=== PATIENT | female | born 1930 | race Caucasian/White ===

== ENCOUNTER 2017-03-27 08:32 | Emergency (ER) | payer OTHER ==
[~2017-03-27] VITALS: Ht 167.6 cm; Wt 81.9 kg
[~2017-03-27 08:32] MED LIST: ALEVE220 M2 PO; ALEVE220 MG PO; ASPIRIN81 M2 PO; Aleve PO; BENICAR40 MG PO; CALCIUM PO; CALTRATE 600600 MG PO; CHILD ASPIRIN81 M1 PO; COUMADIN2.5 MG PO; DAILY VITE1 EAC1 PO; HYDROCHLOROTHIA25 MG PO; HYDROCODON-ACE1 EAC7 PO; IRON325 MG PO; NIASPAN,SLO-N1000 MG PO; PERCOCET 5/31 TABLET PO; SIMVASTATIN20 MG PO; TOPROL XL50 MG PO; VISTARIL25 MG PO
[2017-03-27 10:27] LABS: EOSINOPHIL (%) 0.2 % (0-5); HEMATOCRIT 37.2 % (36.0-46.0); IMMATURE GRANULOCYTE (%) 0.5 % (0.0-0.7); IMMATURE GRANULOCYTE COUNT 0.1 K/uL; INSTRUMENT ABS NEUTROPHIL CT 10.3 K/uL; MCHC 32.8 G/DL (30.0-36.0); MCV 91.4 FL (83-99); MEAN PLAT.VOLUME 11.8 uM^3 (9.5-12.4); MONOCYTE (%) 12.9 % (3-12); MONOCYTE COUNT 1.7 K/uL (0-0.8); NEUTROPHIL (%) 78.7 % (45-76); NEUTROPHIL COUNT 10.3 K/uL (1.8-6.4); PLATELET COUNT 242 K/uL (156-360); RBC DIS.WIDTH-CV 15.9 % (11.8-14.6); RBC DIS.WIDTH-SD 53.1 % (39-53); RED BLOOD COUNT 4.07 M/uL (3.80-5.20); WHITE BLOOD COUNT 13.1 K/uL (4.1-10.2)
[2017-03-27 10:38] LABS: CHLORIDE 99 mEq/L (99-109); POTASSIUM 4.4 mEq/L (3.7-5.4); SODIUM 133 mEq/L (136-147)
[2017-03-27 10:39] LABS: D-DIMER ELISA 2.07 mg/L FEU (< 0.57)
[2017-03-27 10:40] LABS: GLUCOSE 103 mg/dL (70-99)
[2017-03-27 10:41] LABS: ANION GAP 9 MEQ/L (2-14)
[2017-03-27 10:42] LABS: TOTAL BILIRUBIN 0.8 mg/dL (0.0-1.0)
[2017-03-27 10:44] LABS: ALKALINE PHOSPHATASE 367 IU/L (3-129); GFR ESTIMATE (CALCULATED) > 59 mL/min/
[2017-03-27 10:45] LABS: UREA NITROGEN (BUN) 11 mg/dL (9-23)
[2017-03-27 10:48] LABS: TROP-I INTERPRETATION NEGATIVE; TROPONIN-I < 0.01 ng/mL (0.0-0.30)
[2017-03-27 11:38] LABS: ADD MIUA? YES; BILIRUBIN MODERATE; BLOOD NEGATIVE; COLOR YELLOW ((YELLOW)); GLUCOSE (STRIP) NEGATIVE; KETONES 5; LEUKOCYTES SMALL; NITRITE NEGATIVE; PROTEIN (STRIP) 30
[2017-03-27 11:45] LABS: BACTERIA RARE /HPF; CALCIUM OXALATE CRYSTALS 2+ /HPF; EPITHELIAL CELLS NONE SEEN /HPF; MUCUS TRACE /LPF; RED BLOOD CELLS 0-5 /HPF (0-5); UCUL ADDED? NO; UNCLASSIFIED CASTS 0-5 /LPF
[2017-03-27 12:08] LABS: ICTOTEST NEGATIVE
[2017-03-27] MEDS ORDERED: MACROBID100 MG PO (13:40)
[2017-03-27] MEDS ORDERED: NORCO 5/3251 TABLET PO (13:40)
[2017-03-27 14:25] VITALS: BP 122/83
== END 2017-03-27 14:26 | disposition home or self-care (01) ==
LOC: EME → EDBD 08:32 → EME 08:32
PROVIDERS: Emergency Medicine
DX: R10.11 Right upper quadrant pain (principal); R16.0 Hepatomegaly, not elsewhere classified; N39.0 Urinary tract infection, site not specified; I10 Essential (primary) hypertension; E78.5 Hyperlipidemia, unspecified; Z85.820 Personal history of malignant melanoma of skin; Z97.0 Presence of artificial eye
CPT/HCPCS: 71010; 71275; 80053; 81003; 83880; 84484; 85025; 85379; 93005; 99281; 99285

== ENCOUNTER 2017-04-11 13:48 | Inpatient (IN) | payer OTHER ==
[~2017-04-11] VITALS: Ht 167.6 cm; Wt 87.0 kg
[~2017-04-11 13:48] MED LIST changes: -CALCIUM 600 +1 EAC3 PO; -ONDANSETRON HCL8 MG PO; -OXYCODONE HCL5 MG PO
[2017-04-11 15:51] LABS: HEMATOCRIT 35.7 % (36.0-46.0); MCHC 33.1 G/DL (30.0-36.0); MCV 93.7 FL (83-99); MEAN PLAT.VOLUME 10.8 uM^3 (9.5-12.4); PLATELET COUNT 234 K/uL (156-360); RBC DIS.WIDTH-SD 61.4 % (39-53); RED BLOOD COUNT 3.81 M/uL (3.80-5.20); WHITE BLOOD COUNT 16.9 K/uL (4.1-10.2)
[2017-04-11 16:01] LABS: CHLORIDE 103 mEq/L (99-109); POTASSIUM 4.9 mEq/L (3.7-5.4); SODIUM 135 mEq/L (136-147)
[2017-04-11 16:03] LABS: GLUCOSE 111 mg/dL (70-99)
[2017-04-11 16:04] LABS: ANION GAP 8 MEQ/L (2-14)
[2017-04-11 16:07] LABS: GFR ESTIMATE (CALCULATED) 50 mL/min/
[2017-04-11 16:08] LABS: UREA NITROGEN (BUN) 28 mg/dL (9-23)
[2017-04-11] MEDS ORDERED: CALCIUM 600 +1 EAC3 PO (17:12)
[2017-04-11] MEDS ORDERED: ONDANSETRON HCL8 MG PO (17:14)
[2017-04-11] MEDS ORDERED: OXYCODONE HCL5 MG PO (17:14)
[2017-04-11 17:44] LABS: TYPE OF FLUID PLEURAL
[2017-04-11 18:09] LABS: BODY FLUID RBC'S 10000 /MM^3 (0-100); BODY FLUID WBC'S 267 /MM^3 (0-500)
[2017-04-11 18:20] LABS: BODY FLUID EOSINOPHILS 0 % (0-25); MONONUCLEAR WBC'S 92 %; POLYNUCLEAR WBC'S 8 % (0-25)
[2017-04-11 18:45] VITALS: BP 92/51
[2017-04-11 18:52] LABS: BODY FLUID LDH 447 IU/L; BODY FLUID PROTEIN < 3.0 G/DL
[2017-04-11 21:14] VITALS: BP 87/50
[2017-04-11 21:45] LABS: TROP-I INTERPRETATION NEGATIVE; TROPONIN-I 0.02 ng/mL (0.0-0.30)
[2017-04-11 22:38] VITALS: BP 89/51
[2017-04-12 02:50] VITALS: BP 112/60
[2017-04-12 05:34] LABS: HEMATOCRIT 31.9 % (36.0-46.0); MCHC 32.3 G/DL (30.0-36.0); MCV 96.1 FL (83-99); MEAN PLAT.VOLUME 11.2 uM^3 (9.5-12.4); PLATELET COUNT 204 K/uL (156-360); RBC DIS.WIDTH-CV 18.1 % (11.8-14.6); RBC DIS.WIDTH-SD 63.3 % (39-53); RED BLOOD COUNT 3.32 M/uL (3.80-5.20); WHITE BLOOD COUNT 14.5 K/uL (4.1-10.2)
[2017-04-12 05:58] LABS: ANION GAP 6 MEQ/L (2-14); CHLORIDE 101 MEQ/L (99-109); GFR ESTIMATE (CALCULATED) 30 mL/min/; GLUCOSE 87 mg/dL (70-99); POTASSIUM 5.3 MEQ/L (3.7-5.4); SAMPLE HEMOLYSIS CHECK 0; SAMPLE ICTERIC CHECK 0; SAMPLE LIPEMIA CHECK 0; SODIUM 135 MEQ/L (136-147); UREA NITROGEN (BUN) 31 mg/dL (9-23)
[2017-04-12 08:15] VITALS: BP 108/56
[2017-04-12 12:32] VITALS: BP 97/50
[2017-04-12 16:32] VITALS: BP 104/51
[2017-04-12 19:23] VITALS: BP 98/52
[2017-04-12 22:12] VITALS: BP 90/44
[2017-04-13 03:13] VITALS: BP 97/52
[2017-04-13 08:06] VITALS: BP 104/52
[2017-04-13 10:59] LABS: ANION GAP 9 MEQ/L (2-14); CHLORIDE 101 MEQ/L (99-109); GFR ESTIMATE (CALCULATED) 19 mL/min/; GLUCOSE 127 mg/dL (70-99); POTASSIUM 4.8 MEQ/L (3.7-5.4); SAMPLE HEMOLYSIS CHECK 0; SAMPLE ICTERIC CHECK 0; SAMPLE LIPEMIA CHECK 0; SODIUM 135 MEQ/L (136-147); UREA NITROGEN (BUN) 43 mg/dL (9-23)
[2017-04-13 11:48] VITALS: BP 98/57
[2017-04-13 14:21] LABS: EOSINOPHIL (%) 0.5 % (0-5); EOSINOPHIL COUNT 0.1 K/uL (0-0.3); IMMATURE GRANULOCYTE (%) 0.5 % (0.0-0.7); IMMATURE GRANULOCYTE COUNT 0.1 K/uL; INSTRUMENT ABS NEUTROPHIL CT 12.1 K/uL; LYMPHOCYTE COUNT 0.6 K/uL (1.0-2.8); MCHC 32.7 G/DL (30.0-36.0); MCV 97.6 FL (83-99); MEAN PLAT.VOLUME 11.2 uM^3 (9.5-12.4); MONOCYTE (%) 11.6 % (3-12); MONOCYTE COUNT 1.7 K/uL (0-0.8); NEUTROPHIL (%) 83.4 % (45-76); NEUTROPHIL COUNT 12.1 K/uL (1.8-6.4); PLATELET COUNT 198 K/uL (156-360); RBC DIS.WIDTH-CV 18.5 % (11.8-14.6); RBC DIS.WIDTH-SD 65.9 % (39-53); RED BLOOD COUNT 3.38 M/uL (3.80-5.20); WHITE BLOOD COUNT 14.6 K/uL (4.1-10.2)
[2017-04-13 14:52] VITALS: BP 112/58
[2017-04-13 19:30] VITALS: BP 111/58
[2017-04-13 23:59] VITALS: BP 105/51
[2017-04-14 04:38] VITALS: BP 99/57
[2017-04-14 04:38] LABS: ADD MIUA? YES; BILIRUBIN MODERATE; BLOOD NEGATIVE; COLOR AMBER ((YELLOW)); GLUCOSE (STRIP) NEGATIVE; KETONES 5; LEUKOCYTES NEGATIVE; NITRITE NEGATIVE; PROTEIN (STRIP) NEGATIVE; SPECIFIC GRAVITY 1.016 (1.000-1.030)
[2017-04-14 05:03] LABS: BACTERIA 2+ /HPF; EPITHELIAL CELLS RARE /HPF; MUCUS RARE /LPF; RED BLOOD CELLS NONE SEEN /HPF (0-5)
[2017-04-14 05:04] LABS: CASTS PRESENT /LPF; CRYSTALS PRESENT; HYALINE CASTS 0-5 /LPF; UCUL ADDED? NO; WHITE BLOOD CELLS 0-5 /HPF (0-5)
[2017-04-14 05:05] LABS: AMORPHOUS URATES CRYSTALS 2+
[2017-04-14 05:10] LABS: UR CREATININE CONCENTRATION 219.3 MG/DL
[2017-04-14 06:32] LABS: ANION GAP 8 MEQ/L (2-14); CHLORIDE 108 MEQ/L (99-109); GFR ESTIMATE (CALCULATED) 21 mL/min/; GLUCOSE 94 mg/dL (70-99); SAMPLE HEMOLYSIS CHECK 0; SAMPLE ICTERIC CHECK 0; SAMPLE LIPEMIA CHECK 0; SODIUM 138 MEQ/L (136-147); UREA NITROGEN (BUN) 47 mg/dL (9-23)
[2017-04-14 08:27] VITALS: BP 106/51
[2017-04-14 11:56] VITALS: BP 120/59
[2017-04-14 16:04] VITALS: BP 107/58
[2017-04-14 20:00] VITALS: BP 122/55
[2017-04-14 20:16] VITALS: BP 124/60
[2017-04-14 22:39] LABS: ICTOTEST NEGATIVE
[2017-04-15] VITALS (12 sets, daily range): BP systolic 71–146; BP diastolic 32–57
[2017-04-15 04:37] LABS: BASE EXCESS -8.9 mEq/L (-3 to +3); BICARBONATE 21.9 mEq/L (22-26); CARBOXY HGB 2.4 % (0-5); COMMENTS - BLOOD GASES A+C+; DEVICE NRBM; FI02 100 %; METHEMOGLOBIN 1.9 % (0-1.5); PCO2 74 mm Hg (35-45); PO2 80 mm Hg (80-100); SITE RR
[2017-04-15 06:09] LABS: METH RESISTANT S AUREUS PCR NEGATIVE (NEGATIVE)
[2017-04-15 06:14] LABS: PROBE CHECK PASS; SPECIMEN PROCESSING CONTROL PASS
[2017-04-15 06:29] LABS: CARBOXY HGB 2.1 % (0-5); METHEMOGLOBIN 1.7 % (0-1.5); PCO2 66 mm Hg (35-45); PO2 88 mm Hg (80-100); pH 7.11 (7.35-7.45)
[2017-04-15 06:30] LABS: DEVICE 840; FI02 100 %; MECHANICAL RATE 14 resp/min; MODE AC; PEEP 5 CM/H20; SITE RR; TIDAL VOLUME 400 ML; TOTAL RESP RATE 14 resp/min
[2017-04-15 06:33] LABS: pH 7.08 (7.35-7.45)
[2017-04-15 07:16] LABS: ADD MIUA? YES; BILIRUBIN MODERATE; BLOOD NEGATIVE; COLOR AMBER ((YELLOW)); GLUCOSE (STRIP) NEGATIVE; KETONES 5; LEUKOCYTES NEGATIVE; NITRITE NEGATIVE; PROTEIN (STRIP) 30; SPECIFIC GRAVITY 1.019 (1.000-1.030)
[2017-04-15 07:27] LABS: EOSINOPHIL (%) 0.1 % (0-5); HEMATOCRIT 38.1 % (36.0-46.0); IMMATURE GRANULOCYTE (%) 2.7 % (0.0-0.7); IMMATURE GRANULOCYTE COUNT 0.5 K/uL; INSTRUMENT ABS NEUTROPHIL CT 15.9 K/uL; LYMPHOCYTE COUNT 0.9 K/uL (1.0-2.8); MCH 32.5 PG (29.0-34.0); MONOCYTE (%) 8.8 % (3-12); MONOCYTE COUNT 1.7 K/uL (0-0.8); NEUTROPHIL (%) 83.3 % (45-76); NEUTROPHIL COUNT 15.9 K/uL (1.8-6.4); PLATELET COUNT 242 K/uL (156-360); RBC DIS.WIDTH-CV 18.7 % (11.8-14.6); RBC DIS.WIDTH-SD 70.4 % (39-53); RED BLOOD COUNT 3.75 M/uL (3.80-5.20); WHITE BLOOD COUNT 19.1 K/uL (4.1-10.2)
[2017-04-15 07:29] LABS: MCV 101.6 FL (83-99)
[2017-04-15 07:30] LABS: BACTERIA RARE /HPF; EPITHELIAL CELLS RARE /HPF; GRANULAR CASTS 0-5 /LPF; HYALINE CASTS 15-20 /LPF; MUCUS TRACE /LPF; RED BLOOD CELLS 0-5 /HPF (0-5); UCUL ADDED? NO; WHITE BLOOD CELLS 0-5 /HPF (0-5)
[2017-04-15 07:33] LABS: ICTOTEST NEGATIVE
[2017-04-15 07:36] LABS: ANION GAP 8 MEQ/L (2-14); CHLORIDE 107 MEQ/L (99-109); DIRECT BILIRUBIN 0.6 mg/dL (0.0-0.3); POTASSIUM 5.7 MEQ/L (3.7-5.4); SAMPLE HEMOLYSIS CHECK 0; SAMPLE ICTERIC CHECK 0; SAMPLE LIPEMIA CHECK 0; SODIUM 136 MEQ/L (136-147); TOTAL BILIRUBIN 1.4 MG/DL (0.0-1.0)
[2017-04-15 07:42] LABS: ALKALINE PHOSPHATASE 527 IU/L (3-129); GFR ESTIMATE (CALCULATED) 18 mL/min/; GLUCOSE 117 mg/dL (70-99); UREA NITROGEN (BUN) 53 mg/dL (9-23)
== END 2017-04-15 14:35 | DRG 435 ==
LOC: EME 13:48 → 4WEST 16:51 → EDOF 16:51 → 4EAST 16:51 → 4WEST 04-15 04:47
PROVIDERS: Emergency Medicine; Internal Medicine; Internal Medicine Nephrology; Radiology Diagnostic Radiology
DX: C78.7 Secondary malignant neoplasm of liver and intrahepatic bile duct (principal); J91.0 Malignant pleural effusion; J96.01 Acute respiratory failure with hypoxia; J96.02 Acute respiratory failure with hypercapnia; J98.11 Atelectasis; N17.0 Acute kidney failure with tubular necrosis; E87.2 Acidosis; I95.9 Hypotension, unspecified; Z66 Do not resuscitate; Z51.5 Encounter for palliative care; Z85.820 Personal history of malignant melanoma of skin; D72.823 Leukemoid reaction; E78.5 Hyperlipidemia, unspecified; I10 Essential (primary) hypertension; F41.9 Anxiety disorder, unspecified; R00.0 Tachycardia, unspecified; M19.90 Unspecified osteoarthritis, unspecified site; E66.9 Obesity, unspecified; Z68.30 Body mass index [BMI] 30.0-30.9, adult; Z79.82 Long term (current) use of aspirin; Z97.0 Presence of artificial eye; Z96.641 Presence of right artificial hip joint
CPT/HCPCS: 32555; 36600; 71010; 71020; 76770; 77012; 80048; 80048 91; 80069; 80076; 81003; 82570; 82803; 82945; 83605; 83615 91; 84157; 84300; 84484; 85025; 85027; 85610; 85730; 87040; 87070; 87075; 87205; 87641; 88108; 88305; 88307; 88341 TC; 88342 TC; 89051; 89190; 93005; 94002; 94640; 94799; 99281; 99285; C1753; J0692; J1650; J1815; J2250; J2270; J3010; J3370; J7030; J7040; J7050; P9047; S0028

== ENCOUNTER → 2017-04-11 | Outpatient (CLI) | payer OTHER ==
[~2017-04-11] VITALS: Ht 167.6 cm; Wt 81.6 kg
[~2017-04-11] MED LIST changes: +CALCIUM + D3 E1 EACH PO; +CALCIUM 600 +1 EAC3 PO; +LORAZEPAM0.5 MG PO; +MACROBID100 MG PO; +NORCO 5/3251 TABLET PO; +ONDANSETRON HCL8 MG PO; +OXYCODONE HCL5 MG PO
[2017-04-11 10:23] LABS: INTER. NORMALIZED RATIO 1.2; PROTHROMBIN TIME 12.6 (9.2-11.2); PTT 31.6 (25-32)
== END | disposition home or self-care (01) ==
LOC: OPR 09:26 → EDSTATUS 10:00
PROVIDERS: Radiology Diagnostic Radiology
DX: C78.7 Secondary malignant neoplasm of liver and intrahepatic bile duct (principal); E78.5 Hyperlipidemia, unspecified; I10 Essential (primary) hypertension; Z68.29 Body mass index [BMI] 29.0-29.9, adult; E66.9 Obesity, unspecified; F41.9 Anxiety disorder, unspecified; R11.0 Nausea; R06.02 Shortness of breath; J90 Pleural effusion, not elsewhere classified; Z79.82 Long term (current) use of aspirin; Z85.820 Personal history of malignant melanoma of skin
CPT/HCPCS: 77012; 85610; 85730; 88307; 88341 TC; 88342 TC